=== PATIENT | male | born 1975 | race Caucasian/White ===

== ENCOUNTER 2016-09-12 19:50 | Emergency (ER) | payer OTHER ==
[~2016-09-12] VITALS: Ht 167.6 cm; Wt 97.5 kg
[~2016-09-12 19:50] MED LIST: AMBIEN10 MG PO; DAYPRO600 M1 PO; ENALAPRIL10 MG PO; FLEXERIL10 MG PO; HYCODAN 1.5 MG480 M1 PO; PREDNICOT20 MG PO; ROBAXIN750 MG PO; VICODIN 5/500 505 MG PO; VICODIN 500 MG-1 TAB PO; VICODIN ES 7501 TA1 PO; ZANTAC150 MG PO
[2016-09-12] MEDS ORDERED: NAPROSYN500 MG PO (20:36)
== END 2016-09-12 20:37 | disposition home or self-care (01) ==
LOC: ED 19:50
DX: M25.561 Pain in right knee (principal); V89.9XXA Person injured in unspecified vehicle accident, initial encounter; Y93.89 Activity, other specified; Y92.9 Unspecified place or not applicable; Y99.9 Unspecified external cause status

== ENCOUNTER 2023-06-24 06:50 | Emergency (ER) | payer BC ==
[~2023-06-24] VITALS: Ht 167.6 cm; Wt 117.9 kg
[~2023-06-24 06:50] MED LIST changes: +DOXYCYCLINE100 M3 PO; +NAPROSYN500 MG PO
[2023-06-24] MEDS ORDERED: VIBRAMYCIN100 MG PO (07:03)
== END 2023-06-24 07:14 | disposition home or self-care (01) ==
LOC: ED 06:50
DX: S30.861A Insect bite (nonvenomous) of abdominal wall, initial encounter (principal); Z88.8 Allergy status to other drugs, medicaments and biological substances; Z98.890 Other specified postprocedural states; W57.XXXA Bitten or stung by nonvenomous insect and other nonvenomous arthropods, initial encounter; Y93.89 Activity, other specified; Y92.009 Unspecified place in unspecified non-institutional (private) residence as the place of occurrence of the external cause; Y99.8 Other external cause status

== ENCOUNTER 2025-02-14 06:56 | Emergency (ER) | payer OTHER ==
[~2025-02-14] VITALS: Ht 172.7 cm; Wt 120.2 kg
[~2025-02-14 06:56] MED LIST changes: +VIBRAMYCIN100 MG PO
[2025-02-14 07:40] LABS: BASO % 0.6 % (0.0-1.0); EOS # 0.2 10*3/uL (0.0-0.4); EOS % 2.6 % (1.0-4.0); HEMATOCRIT 44.4 % (42.0-52.0); MEAN CELL VOLUME 88.1 fl (80.0-94.0); MEAN CORPUSCULAR HGB 28.8 pg (27.0-31.0); MEAN CORPUSCULAR HGB CONC 32.7 g/dl (33.0-37.0); MEAN PLATELET VOLUME 10.8 fl (9.6-12.3); MONO # 0.5 10*3/uL (0.1-1.0); MONO % 7.1 % (3.0-9.0); NEUT # 3.4 10*3/uL (2.3-7.9); NEUT % 50.7 % (47.0-73.0); PLATELET COUNT AUTOMATED 237 10*3/uL (130-400); RED BLOOD COUNT 5.04 10*6/uL (4.50-5.90); RED CELL DISTRI WIDTH 12.4 % (0-14.5); WHITE BLOOD COUNT 6.7 10*3/uL (4.8-10.8)
[2025-02-14] MEDS ORDERED: AVPAK AZITHROM250 M1 PO (07:57)
[2025-02-14] MEDS ORDERED: AFRIN15 ML INH (07:57)
== END 2025-02-14 07:59 | disposition home or self-care (01) ==
LOC: ED 06:56
PROVIDERS: Emergency Medicine
DX: R04.0 Epistaxis (principal); R51.9 Headache, unspecified; Z91.048 Other nonmedicinal substance allergy status; Z79.899 Other long term (current) drug therapy; Z98.890 Other specified postprocedural states